=== PATIENT | male | born 1980 | race Caucasian/White ===

== ENCOUNTER 2017-08-26 08:19 | Emergency (ER) | payer OTHER ==
[~2017-08-26] VITALS: Ht 177.8 cm; Wt 110.0 kg
[2017-08-26 11:00] VITALS: BP 127/74
== END 2017-08-26 11:44 | disposition home or self-care (01) ==
LOC: ER 08:41
DX: M48.02 Spinal stenosis, cervical region (principal); V43.52XA Car driver injured in collision with other type car in traffic accident, initial encounter; R51 Headache; Y93.89 Activity, other specified; Y92.89 Other specified places as the place of occurrence of the external cause; Y99.8 Other external cause status
CPT/HCPCS: 72125; 99284